=== PATIENT | female | born 1995 | race American Indian/Alaskan Native ===

== ENCOUNTER 2020-05-02 20:44 | Inpatient (IN) | payer MEDICAID ==
[2020-05-02] MEDS ORDERED: ePHEDrine SULFATE 50 MG/1 ML INJ IV PRN ×2 (21:22→23:46)
[2020-05-02] MEDS ORDERED: METHYLERGONOVINE MALEATE 0.2 MG/ML VIAL IM PRN (21:22)
[2020-05-02] MEDS ORDERED: OXYTOCIN 10 UNIT/1 ML INJ IM PRN (21:22)
[2020-05-02] MEDS ORDERED: BUTORPHANOL 2 MG/1 ML INJ IV PRN (21:22)
[2020-05-02] MEDS ORDERED: TERBUTALINE 1 MG/1 ML INJ SUB-Q PRN (21:22)
[2020-05-02] MEDS ORDERED: LIDOCAINE (2%) 20 MG/1 ML VIAL 20 ML MDV INFILTRATI ONE (21:22)
[2020-05-02] MEDS ORDERED: LOPERAMIDE 2 MG CAP PO PRN (21:22)
[2020-05-02] MEDS ORDERED: MINERAL OIL 30 ML ORAL LIQD PO PRN (21:22)
[2020-05-02] MEDS ORDERED: CARBOPROST TROMETHAMINE 250 MCG/1 ML INJ IM PRN (21:22)
[2020-05-02] MEDS ORDERED: fentaNYL 100 MCG/2 ML INJ IV PRN (21:22)
[2020-05-02] MEDS ORDERED: ONDANSETRON 4 MG/2 ML INJ IV PRN (21:22)
[2020-05-02] MEDS ORDERED: AMPICILLIN/NS 2 GM/100 ML 2 GM/100 ML BAG IV ONE (21:42)
[2020-05-02 21:54] LABS: Hematocrit 30.8 % (30.3-42.9); Hemoglobin 9.9 gm/dl (10.1-14.3); Mean Corpuscular HGB Conc 32 % (30-34); Mean Corpuscular Volume 79 fl (79-97); Platelet Count 265 K/mm3 (140-440); Red Blood Count 3.91 M/mm3 (3.65-5.03); Red Cell Distribution Width 16.3 % (13.2-15.2)
[2020-05-02] MEDS ORDERED: OXYTOCIN DRIP 30 UNITS/500 ML BAG IV SCH ×2 (22:00)
--- NOTE | 2020-05-02 22:03 | History and Physical Report ---
History of Present Illness Date of examination: 05/02/20 Chief complaint: Contractions q5-6 minutes and bloody show History of present illness: EDC Calculations LMP: 05/01/2020 Past History : 1 Term Births: 0 Premature Births: 0 Living Children: 0 Para: 0 Mult. Births: 0 Prev : 0 Aborta: 0 Elect. Ab: 0 Spont. 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 % Family History Risk Factors: Family History of MO in females < 65 years old: no Dietary Counseling: pn yes Past Medical History: Reviewed history and no changes required: Negative Past Medical History Past Surgical History: Reviewed history and no changes required: negative Past Medical History Anesthesia Complications: negative Anemia: negative Autoimmune Disorder: negative Bleeding Disorder: negative Blood Transfusions: negative Breast Disease: negative Diabetes: negative Heart Disease: negative Hypertension: negative Hepatitis/Liver Disease: negative Kidney Disease/UTI: negative Neurologic/Epilepsy/Migraines: negative Phlebitis/Varicosities: negative Psychiatric: negative Pulmonary Disease/Asthma: negative Thyroid Disease: negative Hospitalizations: negative Surgery (Non-burrer machine): negative Abnormal PAP: negative ISAAC Exposure: negative Infertility: negative Uterine Anomaly: negative Uterine Surgery (not C/S): negative Other Gynecologic Problems: negative Family Hx: Mother: HTN Infection History Hx of STD: none HIV Risk Eval: no Hepatitis B Risk Eval: low risk Personal hx. of genital herpes: no Partner hx. of genital herpes: no Rash, Viral, or Febrile illness since last LMP? no Varicella/Chicken Pox Status: Unknown TB Risk: no Genetic History Congenital Heart Defect: Mom: no Dad: unknown Cody Disease: Mom: no Dad: unknown Thalassemia Mom: no Dad: unknown Neural Tube Defect Mom: no Dad: unknown Down's Syndrome Mom: no Dad: unknown Dino-Sachs Mom: no Dad: unknown Sickle Cell Disease/Trait Mom: yes Dad: unknown Comments: Does not know family members name. Hemophilia Mom: no Dad: unknown Muscular Dystrophy Mom: no Dad: unknown Cystic Fibrosis Mom: no Dad: unknown [place] Chorea Mom: no Dad: unknown Mental Retardation Mom: no Dad: unknown Fragile X Mom: no Dad: unknown Other Genetic/Chromosomal Disorder Mom: no Dad: unknown Child w/other defect Mom: no Dad: unknown Enviromental Exposures Xray Exposure: no Medication, drug, or alcohol use since LMP: no Chemical/Other Exposure: no Exposure to Cat Liter: no Hx of Parvovirus (Fifth Disease): no Occupational Exposure to Children: none Current Allergies (reviewed today): * ROBITUSSIN (Critical) Past History Past Medical History: other (see HPI) Past Surgical History: other (see HPI) 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 (see HPI) Family/Genetic History: other (see HPI) - Obstetrical History Expected Date of Delivery: 05/01/20 Actual Gestation: 40 Week(s) 1 Day(s) : 1 Para: 0 Hx # Term Pregnancies: 0 Number of Pregnancies: 0 Spontaneous Abortions: 0 Induced : 0 Number of Living Children: 0 Medications and Allergies Allergies Allergy/AdvReac Type Severity Reaction Status Date / Time guaifenesin [From Robitussin] Allergy Unknown Verified 05/02/20 20:59 Active Meds: Active Medications Butorphanol Tartrate (Butorphanol 2 Mg/1 Ml Inj) 2 mg IV Q2H PRN PRN Reason: Pain , Severe (7-10) Carboprost Tromethamine (Carboprost Tromethamine 250 Mcg/1 Ml Inj) 250 mcg IM ONCE PRN PRN Reason: Uterine Bleeding Ephedrine Sulfate (Ephedrine Sulfate 50 Mg/1 Ml Inj) 10 mg IV Q2M PRN PRN Reason: Hypotension Fentanyl (Fentanyl 100 Mcg/2 Ml Inj) 100 mcg IV Q2H PRN PRN Reason: Pain,Severe (7-10) LABOR PAIN Oxytocin/Sodium Chloride (Pitocin/Ns 30 Unit/500ml) 30 units in 500 mls @ 4 mls/hr IV TITR KING; Protocol Lactated Ringer's (Lactated Ringers) 1,000 mls @ 125 mls/hr IV DIRECT KING Oxytocin/Sodium Chloride (Pitocin/Ns 30 Unit/500ml) 30 units in 500 mls @ 40 mls/hr IV TITR KING; Protocol Ampicillin Sodium (Ampicillin/Ns 2 Gm/100 Ml) 2 gm in 100 mls @ 100 mls/hr IV ONCE ONE; Protocol Stop: 05/02/20 22:41 Ampicillin Sodium (Ampicillin/Ns 1 Gm/50 Ml) 1 gm in 50 mls @ 100 mls/hr IV Q4H KING; Protocol Loperamide HCl (Loperamide 2 Mg Cap) 2 mg PO ONCE PRN PRN Reason: give with Hemabate Methylergonovine Maleate (Methylergonovine Maleate 0.2 Mg/Ml Vial) 0.2 mg IM ONCE PRN PRN Reason: Uterine Bleeding Mineral Oil (Mineral Oil 30 Ml Oral Liqd) 30 ml PO QHS PRN PRN Reason: Constipation Ondansetron HCl (Ondansetron 4 Mg/2 Ml Inj) 4 mg IV Q8H PRN PRN Reason: Nausea And Vomiting Oxytocin (Oxytocin 10 Unit/1 Ml Inj) 10 unit IM ONCE PRN PRN Reason: Uterine Bleeding Terbutaline Sulfate (Terbutaline 1 Mg/1 Ml Inj) 0.25 mg SUB-Q ONCE PRN PRN Reason: Hyperstimulation/Hypertonicity Review of Systems All systems: negative - Vital Signs Vital signs: Vital Signs Pulse Pulse Ox 109 H 99 05/02/20 21:09 05/02/20 21:09 Temp Pulse Resp BP Pulse Ox 99 F 98 H 127/81 99 05/02/20 21:18 05/02/20 21:54 05/02/20 21:29 05/02/20 21:54 - Physical Exam Breasts: Positive: normal Cardiovascular: Regular rate Lungs: Positive: Normal air movement Abdomen: Positive: normal appearance, soft Genitourinary (Female): Positive: normal external genitalia Vagina: Positive: normal moisture - Obstetrical FHR: category 1 Uterine Contraction Monitor Mode: External Cervical Dilatation: 3 Cervical Effacement Percentage: 80 station: -2 Uterine Contraction Pattern: Irregular Uterine Tone Measurement Phase: Contraction Uterine Contraction Intensity: Mild Results Result Diagrams: 05/02/20 21:40 Abnormal lab results 05/02/20 Range/Units 21:40 WBC 12.6 H (4.5-11.0) K/mm3 Hgb 9.9 L (10.1-14.3) gm/dl MCH 25 L (28-32) pg RDW 16.3 H (13.2-15.2) % All other labs normal. Assessment and Plan 24y/o @ 40+1 admitted in early labor, she rates pain 9/10. Admission orders in EMR; epidural PRN and pitocin as needed. Plan discussed with patient and her mother. GBS pos. Trich +, treated 04/29/2020, RAUDEL not yet done. - Patient Problems (1) Active labor at term Current Visit: Yes Status: Acute (2) GBS carrier Current Visit: Yes Status: Acute (3) 40 weeks gestation of Current Visit: Yes Status: Acute
[2020-05-02] MEDS: LACTATED RINGERS 1,000 ML IV SCH (22:53)
[2020-05-02] MEDS ORDERED: fentaNYL-BUPIV 2 MCG/ML-0.125% 200 MCG/100 ML BAG EPIDURAL SCH (23:45)
--- NOTE | 2020-05-02 23:45 | Anesthesia Consultation ---
Anesthesia Consult and Med Hx Date of service: 05/02/20 - Airway Anesthetic Teeth Evaluation: Good ROM Head & Neck: Adequate Mental/Hyoid Distance: Adequate Mallampati Class: Class II Intubation Access Assessment: Probably Good - Pulmonary Exam CTA: Yes - Cardiac Exam Cardiac Exam: RRR - Pre-Operative Health Status ASA Pre-Surgery Classification: ASA2 Proposed Anesthetic Plan: Epidural - Pulmonary Hx Smoking: No Hx Asthma: No Hx Respiratory Symptoms: No SOB: No COPD: No Home Oxygen Therapy: No Hx Pneumonia: No Hx Sleep Apnea: No - Cardiovascular System Hx Hypertension: No Hx Coronary Artery Disease: No Hx Heart Attack/AMI: No Hx Angina: No Hx Percutaneous Transluminal Coronary Angioplasty (PTCA): No Hx Cardia Arrhythmia: No Hx Pacemaker: No Hx Internal Defibrillator: No Hx Valvular Heart Disease: No Hx Heart Murmur: No Hx Peripheral Vascular Disease: No - Central Nervous System Hx Neuromuscular Disorder: No Hx Seizures: No CVA: No Hx Back Pain: No Hx Psychiatric Problems: No - Gastrointestinal Hx Ulcer: No Hx Gastroesophageal Reflux Disease: No - Endocrine Hx Renal Disease: No Hx End Stage Renal Disease: No Hx Cirrhosis: No Hx Liver Disease: No Hx Insulin Dependent Diabetes: No Hx Non-Insulin Dependent Diabetes: No Hx Thyroid Disease: No Hx Hypothyroidism: No Hx Hyperthyroidism: No - Hematic Hx Anemia: Yes (now) Hx Sickle Cell Disease: Yes (trait) - Other Systems Hx Alcohol Use: No Hx Substance Use: No Hx Cancer: No Hx Obesity: Yes
[2020-05-02] MEDS ORDERED: NALOXONE 2 MG/2 ML INJ IV PRN (23:46)
--- NOTE | 2020-05-02 23:46 | Progress Note ---
Labor Epidural - Labor Epidural Start Time: 00:15 Stop Time: 00:17 Performed by:: JUNE KENNEDY Procedure: Patient is requesting a laboring epidural for laboring pain. Patient IDed, H&P reviewed, all questions and concerns were answered, and consent was signed. Timeout was performed at bedside. Patient in sitting position. Sterile prep and drape was performed. [3] ml of 1% lidocaine skin wheal at L[3]- L [4]. 18- gauge Tuohy epidural needle was advanced to loss of resistance with air technique 6cm. Negative CSF negative blood. Epidural catheter advanced to [10] centimeters. [NEGATIVE] Aspiration [NEGATIVE] test dose. Sterile dressing applied. Patient tolerated procedure.
[2020-05-03] MEDS: LACTATED RINGERS 1,000 ML IV SCH ×2 (00:29→01:48)
[2020-05-03] MEDS ORDERED: AMPICILLIN/NS 1 GM/50 ML 1 GM/50 ML BAG IV SCH (01:23)
--- NOTE | 2020-05-03 07:46 | Progress Note ---
Assessment and Plan A: 24 y.o. @ term, active labor. Cervical exam 1. AROM light mec. P: Start Pitocin per protocol. SAGAR team at delivery d/t light mec. Anticipate . Subjective - Subjective Date of service: 05/03/20 (Pt feeling pressure) Principal diagnosis: IUP@ term, active labor Patient reports: new complaints (Pt states that she is feeling pressure) Objective - Vital Signs Vital Signs: Vital Signs - 12hr 05/02/20 05/02/20 05/02/20 21:09 21:10 21:14 Temperature Pulse Rate 109 H 100 H 113 H Respiratory Rate Blood Pressure 137/77 Blood Pressure [Left] O2 Sat by Pulse 99 99 Oximetry 05/02/20 05/02/20 05/02/20 21:18 21:19 21:23 Temperature 99 F Pulse Rate 120 H 90 Respiratory Rate Blood Pressure 144/79 Blood Pressure [Left] O2 Sat by Pulse 99 Oximetry 05/02/20 05/02/20 05/02/20 21:24 21:29 21:34 Temperature Pulse Rate 105 H 110 H 98 H Respiratory Rate Blood Pressure 127/81 Blood Pressure [Left] O2 Sat by Pulse 100 100 100 Oximetry 05/02/20 05/02/20 05/02/20 21:39 21:44 21:49 Temperature Pulse Rate 96 H 100 H 114 H Respiratory Rate Blood Pressure Blood Pressure [Left] O2 Sat by Pulse 99 99 100 Oximetry 05/02/20 05/02/20 05/02/20 21:54 21:59 22:04 Temperature Pulse Rate 98 H 106 H 98 H Respiratory Rate Blood Pressure Blood Pressure [Left] O2 Sat by Pulse 99 100 100 Oximetry 05/02/20 05/02/20 05/02/20 22:09 22:14 22:19 Temperature Pulse Rate 110 H 109 H 99 H Respiratory Rate Blood Pressure Blood Pressure [Left] O2 Sat by Pulse 100 99 100 Oximetry 05/02/20 05/02/20 05/02/20 22:48 22:53 22:54 Temperature 99.2 F Pulse Rate 91 H 101 H 94 H Respiratory 18 Rate Blood Pressure Blood Pressure 120/66 [Left] O2 Sat by Pulse 99 100 100 Oximetry 05/02/20 05/02/20 05/02/20 22:55 22:58 23:03 Temperature Pulse Rate 88 95 H 93 H Respiratory Rate Blood Pressure 120/66 Blood Pressure [Left] O2 Sat by Pulse 100 100 Oximetry 05/02/20 05/02/20 05/02/20 23:08 23:13 23:18 Temperature Pulse Rate 107 H 90 95 H Respiratory Rate Blood Pressure Blood Pressure [Left] O2 Sat by Pulse 99 100 100 Oximetry 05/02/20 05/02/20 05/03/20 23:23 23:56 00:01 Temperature Pulse Rate 84 93 H 111 H Respiratory Rate Blood Pressure Blood Pressure [Left] O2 Sat by Pulse 100 100 100 Oximetry 05/03/20 05/03/20 05/03/20 00:06 00:10 00:11 Temperature Pulse Rate 124 H 126 H 131 H Respiratory Rate Blood Pressure 122/73 Blood Pressure [Left] O2 Sat by Pulse 100 100 Oximetry 05/03/20 05/03/20 05/03/20 00:12 00:14 00:16 Temperature Pulse Rate 130 H 123 H 112 H Respiratory Rate Blood Pressure 125/73 130/77 128/78 Blood Pressure [Left] O2 Sat by Pulse 100 Oximetry 05/03/20 05/03/20 05/03/20 00:18 00:20 00:21 Temperature Pulse Rate 111 H 107 H 104 H Respiratory Rate Blood Pressure 130/80 127/71 Blood Pressure [Left] O2 Sat by Pulse 99 Oximetry 05/03/20 05/03/20 05/03/20 00:22 00:24 00:26 Temperature Pulse Rate 110 H 106 H 122 H Respiratory Rate Blood Pressure 118/61 121/77 120/64 Blood Pressure [Left] O2 Sat by Pulse 100 Oximetry 05/03/20 05/03/20 05/03/20 00:28 00:31 00:36 Temperature Pulse Rate 100 H 121 H 105 H Respiratory Rate Blood Pressure 120/58 Blood Pressure [Left] O2 Sat by Pulse 100 100 Oximetry 05/03/20 05/03/20 05/03/20 00:41 00:43 00:46 Temperature Pulse Rate 97 H 112 H 94 H Respiratory Rate Blood Pressure 115/58 Blood Pressure [Left] O2 Sat by Pulse 99 99 Oximetry 05/03/20 05/03/20 05/03/20 00:51 00:56 01:00 Temperature Pulse Rate 116 H 109 H 112 H Respiratory Rate Blood Pressure 116/59 Blood Pressure [Left] O2 Sat by Pulse 100 100 Oximetry 05/03/20 05/03/20 05/03/20 01:01 01:06 01:11 Temperature Pulse Rate 124 H 70 121 H Respiratory Rate Blood Pressure Blood Pressure [Left] O2 Sat by Pulse 98 100 100 Oximetry 05/03/20 05/03/20 05/03/20 01:15 01:16 01:21 Temperature Pulse Rate 113 H 109 H 115 H Respiratory Rate Blood Pressure 105/59 Blood Pressure [Left] O2 Sat by Pulse 100 100 Oximetry 05/03/20 05/03/20 05/03/20 01:26 01:30 01:31 Temperature Pulse Rate 107 H 109 H 111 H Respiratory Rate Blood Pressure 104/58 Blood Pressure [Left] O2 Sat by Pulse 100 99 Oximetry 05/03/20 05/03/20 05/03/20 01:36 01:41 01:45 Temperature Pulse Rate 105 H 98 H 97 H Respiratory Rate Blood Pressure 118/68 Blood Pressure [Left] O2 Sat by Pulse 99 100 Oximetry 05/03/20 05/03/20 05/03/20 01:46 01:51 01:56 Temperature Pulse Rate 107 H 119 H 117 H Respiratory Rate Blood Pressure Blood Pressure [Left] O2 Sat by Pulse 100 100 100 Oximetry 05/03/20 05/03/20 05/03/20 02:00 02:01 02:06 Temperature Pulse Rate 115 H 125 H 112 H Respiratory Rate Blood Pressure 102/56 Blood Pressure [Left] O2 Sat by Pulse 100 100 Oximetry 05/03/20 05/03/20 05/03/20 02:11 02:16 02:17 Temperature Pulse Rate 114 H 112 H 114 H Respiratory Rate Blood Pressure 104/59 Blood Pressure [Left] O2 Sat by Pulse 100 100 Oximetry 05/03/20 05/03/20 05/03/20 02:21 02:26 02:31 Temperature Pulse Rate 118 H 108 H 104 H Respiratory Rate Blood Pressure Blood Pressure [Left] O2 Sat by Pulse 100 100 100 Oximetry 05/03/20 05/03/20 05/03/20 02:32 02:36 02:41 Temperature Pulse Rate 107 H 120 H 111 H Respiratory Rate Blood Pressure 106/56 Blood Pressure [Left] O2 Sat by Pulse 100 100 Oximetry 05/03/20 05/03/20 05/03/20 02:45 02:46 02:51 Temperature Pulse Rate 100 H 111 H 106 H Respiratory Rate Blood Pressure 96/52 Blood Pressure [Left] O2 Sat by Pulse 100 100 Oximetry 05/03/20 05/03/20 05/03/20 02:56 03:00 03:01 Temperature Pulse Rate 108 H 102 H 104 H Respiratory Rate Blood Pressure 103/56 Blood Pressure [Left] O2 Sat by Pulse 100 100 Oximetry 05/03/20 05/03/20 05/03/20 03:06 03:11 03:15 Temperature Pulse Rate 107 H 120 H 108 H Respiratory Rate Blood Pressure 112/69 Blood Pressure [Left] O2 Sat by Pulse 100 100 Oximetry 05/03/20 05/03/20 05/03/20 03:16 03:21 03:26 Temperature Pulse Rate 120 H 102 H 101 H Respiratory Rate Blood Pressure Blood Pressure [Left] O2 Sat by Pulse 100 99 100 Oximetry 05/03/20 05/03/20 05/03/20 03:30 03:31 03:36 Temperature Pulse Rate 109 H 132 H 126 H Respiratory Rate Blood Pressure 96/53 Blood Pressure [Left] O2 Sat by Pulse 100 100 Oximetry 05/03/20 05/03/20 05/03/20 03:41 03:45 03:46 Temperature Pulse Rate 114 H 111 H 116 H Respiratory Rate Blood Pressure 111/65 Blood Pressure [Left] O2 Sat by Pulse 100 100 Oximetry 05/03/20 05/03/20 05/03/20 03:51 03:56 04:00 Temperature Pulse Rate 114 H 116 H 113 H Respiratory Rate Blood Pressure 115/57 Blood Pressure [Left] O2 Sat by Pulse 100 100 Oximetry 05/03/20 05/03/20 05/03/20 04:01 04:06 04:11 Temperature Pulse Rate 124 H 127 H 130 H Respiratory Rate Blood Pressure Blood Pressure [Left] O2 Sat by Pulse 100 100 100 Oximetry 05/03/20 05/03/20 05/03/20 04:15 04:16 04:21 Temperature Pulse Rate 130 H 106 H 114 H Respiratory Rate Blood Pressure 109/59 Blood Pressure [Left] O2 Sat by Pulse 100 100 Oximetry 05/03/20 05/03/20 05/03/20 04:26 04:30 04:31 Temperature Pulse Rate 111 H 117 H 111 H Respiratory Rate Blood Pressure 107/59 Blood Pressure [Left] O2 Sat by Pulse 99 99 Oximetry 05/03/20 05/03/20 05/03/20 04:36 04:41 04:46 Temperature Pulse Rate 108 H 122 H 111 H Respiratory Rate Blood Pressure 109/57 Blood Pressure [Left] O2 Sat by Pulse 99 100 100 Oximetry 05/03/20 05/03/20 05/03/20 04:51 04:56 05:01 Temperature Pulse Rate 137 H 128 H 122 H Respiratory Rate Blood Pressure 124/74 Blood Pressure [Left] O2 Sat by Pulse 99 100 100 Oximetry 05/03/20 05/03/20 05/03/20 05:06 05:11 05:15 Temperature Pulse Rate 120 H 115 H 121 H Respiratory Rate Blood Pressure 112/64 Blood Pressure [Left] O2 Sat by Pulse 100 100 Oximetry 05/03/20 05/03/20 05/03/20 05:16 05:21 05:26 Temperature Pulse Rate 113 H 112 H 108 H Respiratory Rate Blood Pressure Blood Pressure [Left] O2 Sat by Pulse 99 98 98 Oximetry 05/03/20 05/03/20 05/03/20 05:30 05:31 05:36 Temperature Pulse Rate 111 H 115 H 116 H Respiratory Rate Blood Pressure 105/58 Blood Pressure [Left] O2 Sat by Pulse 99 100 Oximetry 05/03/20 05/03/20 05/03/20 05:41 05:45 05:46 Temperature Pulse Rate 100 H 117 H 130 H Respiratory Rate Blood Pressure 112/63 Blood Pressure [Left] O2 Sat by Pulse 99 99 Oximetry 05/03/20 05/03/20 05/03/20 05:51 05:56 06:00 Temperature 98.9 F Pulse Rate 118 H 105 H 110 H Respiratory 20 Rate Blood Pressure 115/69 Blood Pressure 115/69 [Left] O2 Sat by Pulse 100 100 98 Oximetry 05/03/20 05/03/20 05/03/20 06:01 06:06 06:11 Temperature Pulse Rate 106 H 98 H 96 H Respiratory Rate Blood Pressure Blood Pressure [Left] O2 Sat by Pulse 99 99 98 Oximetry 05/03/20 05/03/20 05/03/20 06:15 06:16 06:21 Temperature Pulse Rate 103 H 98 H 103 H Respiratory Rate Blood Pressure 118/71 Blood Pressure [Left] O2 Sat by Pulse 99 99 Oximetry 05/03/20 05/03/20 05/03/20 06:26 06:31 06:36 Temperature Pulse Rate 94 H 104 H 118 H Respiratory Rate Blood Pressure 130/78 Blood Pressure [Left] O2 Sat by Pulse 99 100 99 Oximetry 05/03/20 05/03/20 05/03/20 06:41 06:45 06:46 Temperature Pulse Rate 94 H 111 H 114 H Respiratory Rate Blood Pressure 120/65 Blood Pressure [Left] O2 Sat by Pulse 100 100 Oximetry 05/03/20 05/03/20 05/03/20 06:51 06:56 07:01 Temperature Pulse Rate 107 H 102 H 112 H Respiratory Rate Blood Pressure 117/72 Blood Pressure [Left] O2 Sat by Pulse 100 100 100 Oximetry 05/03/20 05/03/20 05/03/20 07:06 07:11 07:15 Temperature Pulse Rate 102 H 111 H 103 H Respiratory Rate Blood Pressure 100/59 Blood Pressure [Left] O2 Sat by Pulse 100 100 Oximetry 05/03/20 05/03/20 05/03/20 07:16 07:21 07:26 Temperature Pulse Rate 101 H 106 H 104 H Respiratory Rate Blood Pressure Blood Pressure [Left] O2 Sat by Pulse 100 100 100 Oximetry 05/03/20 05/03/20 05/03/20 07:30 07:31 07:36 Temperature Pulse Rate 101 H 105 H 110 H Respiratory Rate Blood Pressure 107/62 Blood Pressure [Left] O2 Sat by Pulse 99 100 Oximetry - Exam Narrative Exam: BBOW noted on exam. AROM light mec noted. SAGAR nurses to be at delivery. Pitocin to be started by RN. Pt has epidural placed and is comfortable. Breasts: deferred Cardiovascular: Regular rate Lungs: Normal air movement Abdomen: Present: normal appearance, soft Vulva: both: normal Uterus: Present: normal FHR: category 1 Uterine Contraction Monitor Mode: External Cervical Dilatation: 7 Cervical Effacement Percentage: 90 station: -1 Uterine Contraction Pattern: Irregular Uterine Tone Measurement Phase: Resting Uterine Contraction Intensity: Moderate Extremities: normal Deep Tendon Reflex Grade: Normal +2 - Labs Labs: Abnormal Labs 05/02/20 21:40 WBC 12.6 H Hgb 9.9 L MCH 25 L RDW 16.3 H Laboratory Results - last 24 hr 05/02/20 05/02/20 05/02/20 21:40 21:40 21:40 WBC 12.6 H RBC 3.91 Hgb 9.9 L Hct 30.8 MCV 79 MCH 25 L MCHC 32 RDW 16.3 H Plt Count 265 Syphilis IgG Antibody Nonreactive Blood Type A POSITIVE Antibody Screen Negative
[2020-05-03] MEDS ORDERED: METOCLOPRAMIDE 10 MG/2 ML INJ ONE (08:50)
[2020-05-03] MEDS ORDERED: ceFAZolin/NS 1 GM/50 ML 1 GM/50 ML BAG IV ONE (08:50)
[2020-05-03] MEDS ORDERED: FAMOTIDINE 20 MG/2 ML INJ IV ONE (08:50)
[2020-05-03] MEDS ORDERED: LIDOCAINE (2%) 20 MG/1 ML VIAL 20 ML MDV INFILTRATI ONE (08:53)
[2020-05-03] MEDS ORDERED: BICITRA ORAL LIQD 30ML ONE (08:55)
--- NOTE | 2020-05-03 09:06 | Event Note ---
Date: 05/03/20 (Deceleration on monitor) Called to room by RN d/t deceleration noted on monitor. Pitocin has not yet been started. Upon entering room prolonged deceleration noted into the 70's. Cervical exam /. Pt turned to left lateral position. Dr. Obregon called and updated on patient progress in labor and deceler ations. Pt prepped for . Consent signed and in chart.
[2020-05-03] MEDS ORDERED: ceFAZolin/STERILE WATER 2 GM/20 ML SYRINGE IV ONE (09:20)
[2020-05-03] MEDS ORDERED: SODIUM CHLORIDE 0.9% IRR 1,500 ML BOTTLE IR ONE (09:30)
[2020-05-03] MEDS ORDERED: WATER FOR IRRIG STERILE 1,500 ML BOTTLE IR ONE (09:30)
[2020-05-03] MEDS ORDERED: PHENYLEPHRINE/NS 1,000 MCG/10 ML SYRINGE (OR USE) IV ONE (09:44)
[2020-05-03] MEDS ORDERED: KETOROLAC 30 MG/1 ML INJ ONE (09:44)
[2020-05-03] MEDS ORDERED: SODIUM BICARB 8.4% 50 MEQ/50 ML VIAL IV ONE (09:44)
[2020-05-03] MEDS ORDERED: ONDANSETRON 4 MG/2 ML INJ ONE (09:44)
[2020-05-03] MEDS ORDERED: BUPIVACAINE/PF (0.5%) 5 MG/1 ML 30 ML VIAL INFILTRATI ONE (09:57)
[2020-05-03] MEDS ORDERED: SODIUM CHLORIDE 0.9% 100 ML ONE (09:58)
--- NOTE | 2020-05-03 11:00 | Operative Report ---
Operative Report Operative Report: Date of procedure: Pre-operative diagnosis: Intrauterine of 40 weeks 1 days with recurrent prolonged bradycardia. Nonreassuring heart rate. Meconium stained amniotic fluid Post-operative diagnosis: Same Procedure name(s): Emergent primary low transverse section Surgeon: Joel Obregon MD [employer] Painter And Grader: Dulce Murillo, certified nurse freelance displayer Anesthesia: Spinal EBL: 600 mL Complications: None Findings: Patient with normal uterus tubes and ovaries bilaterally. Male infant weight 5 pounds 10 ounces. Apgars 8 at 1 minute and 9 at 5 minutes. Specimen(s): None Indication: Patient is labor progressed to 8cm dilatation with meconium stained fluid started having recurrent bradycardia prolonged with multiple contractions. Patient cervical exam and descent status was remote from delivery. Decision made to move toward operative delivery. Procedure: The patient was brought to the operating room in a emergent fashion. Except default patient had spinal anesthesia placed due to inadequate epidural pain relief. She was then placed in left lateral tilt. Prepped and draped in the usual sterile manner. After testing for anesthesia level. Timeout was performed. A Pfannenstiel incision was made. This incision was taken down to the fascia. The fascia was then nicked in the midline. This incision was extended laterally with Miller scissors. The fascia was then sharply and bluntly from the underlying rectus muscles. The rectus muscles were bluntly and sharply . The peritoneum was then entered with the panelboard operator's fingers. This incision was spread vertically with care not to damage the bladder below. The Kike self-retaining tractor was then placed without any difficulty .Bladder blade was placed. The bladder flap was then formed sharply and bluntly with Metzenbaum scissors. Bladder blade replaced. A transverse incision was made in lower uterine segment. This incision was extended laterally with the operators fingers. The amniotic sac was then entered bluntly with the panelboard operator's fingers. The infant was delivered from the vertex position. Bulb suction on the mother's abdomen. Cord was double clamped and cut. The was then passed to the nursery personnel who were in attendance. The above scores were given by the nursery personnel. The placenta was then bluntly removed. The uterus was then externalized and wiped clean the remaining products. The uterine incision was closed in layers. The first incision was closed in a locking manner using 0 Vicryl. This was followed by imbricating stitch also with 0 Vicryl. This closure was hemostatic. The bladder flap was copiously irrigated and found to be hemostatic. The pelvis was copiously irrigated and found to be hemostatic. The uterus was then placed back to the patient's abdomen. The retractors were removed. The rectus muscles were inspected and found to be hemostatic. The fascia was then closed in a running manner using 0 Vicryl. This incision was hemostatic irrigation Bovie. The skin was reapproximated with 4-0 Vicryl subcuticularly. Dermabond was placed over the skin incision. The patient tolerated procedure well. Her urine was clear. The was admitted to the well baby nursery. The patient was accompanied to recovery room in good condition. Instrument count correct 3.
--- NOTE | 2020-05-03 11:22 | Progress Note ---
Spinal Anesthesia Block - Spinal Anesthesia Block Start Time: 09:12 Stop Time: :17 Performed by:: JUNE KENNEDY Procedure: Patient IDed, H&P reviewed, all questions and concerns were answered, and consent was signed. Timeout was performed at bedside. Patient in sitting position. Sterile prep and drape was performed. [3] ml of 1% lidocaine skin wheal at L[3]- L [4]. Needle introducer advanced. 25 gauge spinal needle advanced. Clear, free flowing CSF. negative blood, negative paresthesia. Spinal dose given. All needles removed. Patient tolerated procedure.
--- NOTE | 2020-05-03 11:25 | Progress Note ---
Subjective Date of service: 05/03/20 Principal diagnosis: IUP@ term, active labor Bilateral TAP Block Interval history: Patient IDed, H&P reviewed, all questions and concerns were answered, and c onsent was signed. Timeout was performed at bedside. Patient in sitting position. Sterile prep and drape was performed. [3] ml of 1% lidocaine skin wheal at L[3]- L [4]. Needle introducer advanced. 25 gauge spinal needle advanced. Clear, free flowing CSF. negative blood, negative paresthesia. Spinal dose given. All needles removed. Patient tolerated procedure. Objective - Constitutional Vitals: Vital Signs - 12hr 05/02/20 05/03/20 05/03/20 23:56 00:01 00:06 Temperature Pulse Rate 93 H 111 H 124 H Respiratory Rate Blood Pressure Blood Pressure [Left] O2 Sat by Pulse 100 100 100 Oximetry 05/03/20 05/03/20 05/03/20 00:10 00:11 00:12 Temperature Pulse Rate 126 H 131 H 130 H Respiratory Rate Blood Pressure 122/73 125/73 Blood Pressure [Left] O2 Sat by Pulse 100 Oximetry 05/03/20 05/03/20 05/03/20 00:14 00:16 00:18 Temperature Pulse Rate 123 H 112 H 111 H Respiratory Rate Blood Pressure 130/77 128/78 130/80 Blood Pressure [Left] O2 Sat by Pulse 100 Oximetry 05/03/20 05/03/20 05/03/20 00:20 00:21 00:22 Temperature Pulse Rate 107 H 104 H 110 H Respiratory Rate Blood Pressure 127/71 118/61 Blood Pressure [Left] O2 Sat by Pulse 99 Oximetry 05/03/20 05/03/20 05/03/20 00:24 00:26 00:28 Temperature Pulse Rate 106 H 122 H 100 H Respiratory Rate Blood Pressure 121/77 120/64 120/58 Blood Pressure [Left] O2 Sat by Pulse 100 Oximetry 05/03/20 05/03/20 05/03/20 00:31 00:36 00:41 Temperature Pulse Rate 121 H 105 H 97 H Respiratory Rate Blood Pressure Blood Pressure [Left] O2 Sat by Pulse 100 100 99 Oximetry 05/03/20 05/03/20 05/03/20 00:43 00:46 00:51 Temperature Pulse Rate 112 H 94 H 116 H Respiratory Rate Blood Pressure 115/58 Blood Pressure [Left] O2 Sat by Pulse 99 100 Oximetry 05/03/20 05/03/20 05/03/20 00:56 01:00 01:01 Temperature Pulse Rate 109 H 112 H 124 H Respiratory Rate Blood Pressure 116/59 Blood Pressure [Left] O2 Sat by Pulse 100 98 Oximetry 05/03/20 05/03/20 05/03/20 01:06 01:11 01:15 Temperature Pulse Rate 70 121 H 113 H Respiratory Rate Blood Pressure 105/59 Blood Pressure [Left] O2 Sat by Pulse 100 100 Oximetry 05/03/20 05/03/20 05/03/20 01:16 01:21 01:26 Temperature Pulse Rate 109 H 115 H 107 H Respiratory Rate Blood Pressure Blood Pressure [Left] O2 Sat by Pulse 100 100 100 Oximetry 05/03/20 05/03/20 05/03/20 01:30 01:31 01:36 Temperature Pulse Rate 109 H 111 H 105 H Respiratory Rate Blood Pressure 104/58 Blood Pressure [Left] O2 Sat by Pulse 99 99 Oximetry 05/03/20 05/03/20 05/03/20 01:41 01:45 01:46 Temperature Pulse Rate 98 H 97 H 107 H Respiratory Rate Blood Pressure 118/68 Blood Pressure [Left] O2 Sat by Pulse 100 100 Oximetry 05/03/20 05/03/20 05/03/20 01:51 01:56 02:00 Temperature Pulse Rate 119 H 117 H 115 H Respiratory Rate Blood Pressure 102/56 Blood Pressure [Left] O2 Sat by Pulse 100 100 Oximetry 05/03/20 05/03/20 05/03/20 02:01 02:06 02:11 Temperature Pulse Rate 125 H 112 H 114 H Respiratory Rate Blood Pressure Blood Pressure [Left] O2 Sat by Pulse 100 100 100 Oximetry 05/03/20 05/03/20 05/03/20 02:16 02:17 02:21 Temperature Pulse Rate 112 H 114 H 118 H Respiratory Rate Blood Pressure 104/59 Blood Pressure [Left] O2 Sat by Pulse 100 100 Oximetry 05/03/20 05/03/20 05/03/20 02:26 02:31 02:32 Temperature Pulse Rate 108 H 104 H 107 H Respiratory Rate Blood Pressure 106/56 Blood Pressure [Left] O2 Sat by Pulse 100 100 Oximetry 05/03/20 05/03/20 05/03/20 02:36 02:41 02:45 Temperature Pulse Rate 120 H 111 H 100 H Respiratory Rate Blood Pressure 96/52 Blood Pressure [Left] O2 Sat by Pulse 100 100 Oximetry 05/03/20 05/03/20 05/03/20 02:46 02:51 02:56 Temperature Pulse Rate 111 H 106 H 108 H Respiratory Rate Blood Pressure Blood Pressure [Left] O2 Sat by Pulse 100 100 100 Oximetry 05/03/20 05/03/20 05/03/20 03:00 03:01 03:06 Temperature Pulse Rate 102 H 104 H 107 H Respiratory Rate Blood Pressure 103/56 Blood Pressure [Left] O2 Sat by Pulse 100 100 Oximetry 05/03/20 05/03/20 05/03/20 03:11 03:15 03:16 Temperature Pulse Rate 120 H 108 H 120 H Respiratory Rate Blood Pressure 112/69 Blood Pressure [Left] O2 Sat by Pulse 100 100 Oximetry 05/03/20 05/03/20 05/03/20 03:21 03:26 03:30 Temperature Pulse Rate 102 H 101 H 109 H Respiratory Rate Blood Pressure 96/53 Blood Pressure [Left] O2 Sat by Pulse 99 100 Oximetry 05/03/20 05/03/20 05/03/20 03:31 03:36 03:41 Temperature Pulse Rate 132 H 126 H 114 H Respiratory Rate Blood Pressure Blood Pressure [Left] O2 Sat by Pulse 100 100 100 Oximetry 05/03/20 05/03/20 05/03/20 03:45 03:46 03:51 Temperature Pulse Rate 111 H 116 H 114 H Respiratory Rate Blood Pressure 111/65 Blood Pressure [Left] O2 Sat by Pulse 100 100 Oximetry 05/03/20 05/03/20 05/03/20 03:56 04:00 04:01 Temperature Pulse Rate 116 H 113 H 124 H Respiratory Rate Blood Pressure 115/57 Blood Pressure [Left] O2 Sat by Pulse 100 100 Oximetry 05/03/20 05/03/20 05/03/20 04:06 04:11 04:15 Temperature Pulse Rate 127 H 130 H 130 H Respiratory Rate Blood Pressure 109/59 Blood Pressure [Left] O2 Sat by Pulse 100 100 Oximetry 05/03/20 05/03/20 05/03/20 04:16 04:21 04:26 Temperature Pulse Rate 106 H 114 H 111 H Respiratory Rate Blood Pressure Blood Pressure [Left] O2 Sat by Pulse 100 100 99 Oximetry 05/03/20 05/03/20 05/03/20 04:30 04:31 04:36 Temperature Pulse Rate 117 H 111 H 108 H Respiratory Rate Blood Pressure 107/59 Blood Pressure [Left] O2 Sat by Pulse 99 99 Oximetry 05/03/20 05/03/20 05/03/20 04:41 04:46 04:51 Temperature Pulse Rate 122 H 111 H 137 H Respiratory Rate Blood Pressure 109/57 Blood Pressure [Left] O2 Sat by Pulse 100 100 99 Oximetry 05/03/20 05/03/20 05/03/20 04:56 05:01 05:06 Temperature Pulse Rate 128 H 122 H 120 H Respiratory Rate Blood Pressure 124/74 Blood Pressure [Left] O2 Sat by Pulse 100 100 100 Oximetry 05/03/20 05/03/20 05/03/20 05:11 05:15 05:16 Temperature Pulse Rate 115 H 121 H 113 H Respiratory Rate Blood Pressure 112/64 Blood Pressure [Left] O2 Sat by Pulse 100 99 Oximetry 05/03/20 05/03/20 05/03/20 05:21 05:26 05:30 Temperature Pulse Rate 112 H 108 H 111 H Respiratory Rate Blood Pressure 105/58 Blood Pressure [Left] O2 Sat by Pulse 98 98 Oximetry 05/03/20 05/03/20 05/03/20 05:31 05:36 05:41 Temperature Pulse Rate 115 H 116 H 100 H Respiratory Rate Blood Pressure Blood Pressure [Left] O2 Sat by Pulse 99 100 99 Oximetry 05/03/20 05/03/20 05/03/20 05:45 05:46 05:51 Temperature Pulse Rate 117 H 130 H 118 H Respiratory Rate Blood Pressure 112/63 Blood Pressure [Left] O2 Sat by Pulse 99 100 Oximetry 05/03/20 05/03/20 05/03/20 05:56 06:00 06:01 Temperature 98.9 F Pulse Rate 105 H 110 H 106 H Respiratory 20 Rate Blood Pressure 115/69 Blood Pressure 115/69 [Left] O2 Sat by Pulse 100 98 99 Oximetry 05/03/20 05/03/20 05/03/20 06:06 06:11 06:15 Temperature Pulse Rate 98 H 96 H 103 H Respiratory Rate Blood Pressure 118/71 Blood Pressure [Left] O2 Sat by Pulse 99 98 Oximetry 05/03/20 05/03/20 05/03/20 06:16 06:21 06:26 Temperature Pulse Rate 98 H 103 H 94 H Respiratory Rate Blood Pressure Blood Pressure [Left] O2 Sat by Pulse 99 99 99 Oximetry 05/03/20 05/03/20 05/03/20 06:31 06:36 06:41 Temperature Pulse Rate 104 H 118 H 94 H Respiratory Rate Blood Pressure 130/78 Blood Pressure [Left] O2 Sat by Pulse 100 99 100 Oximetry 05/03/20 05/03/20 05/03/20 06:45 06:46 06:51 Temperature Pulse Rate 111 H 114 H 107 H Respiratory Rate Blood Pressure 120/65 Blood Pressure [Left] O2 Sat by Pulse 100 100 Oximetry 05/03/20 05/03/20 05/03/20 06:56 07:01 07:06 Temperature Pulse Rate 102 H 112 H 102 H Respiratory Rate Blood Pressure 117/72 Blood Pressure [Left] O2 Sat by Pulse 100 100 100 Oximetry 05/03/20 05/03/20 05/03/20 07:11 07:15 07:16 Temperature Pulse Rate 111 H 103 H 101 H Respiratory Rate Blood Pressure 100/59 Blood Pressure [Left] O2 Sat by Pulse 100 100 Oximetry 05/03/20 05/03/20 05/03/20 07:21 07:26 07:30 Temperature Pulse Rate 106 H 104 H 101 H Respiratory Rate Blood Pressure 107/62 Blood Pressure [Left] O2 Sat by Pulse 100 100 Oximetry 05/03/20 05/03/20 05/03/20 07:31 07:36 07:41 Temperature Pulse Rate 105 H 110 H 115 H Respiratory Rate Blood Pressure Blood Pressure [Left] O2 Sat by Pulse 99 100 100 Oximetry 05/03/20 05/03/20 05/03/20 07:46 07:51 07:56 Temperature 98.5 F Pulse Rate 61 114 H 125 H Respiratory 16 Rate Blood Pressure 134/66 Blood Pressure 157/76 [Left] O2 Sat by Pulse 100 100 100 Oximetry 05/03/20 05/03/20 05/03/20 08:00 08:01 08:06 Temperature Pulse Rate 115 H 116 H 110 H Respiratory Rate Blood Pressure 122/64 Blood Pressure [Left] O2 Sat by Pulse 100 100 Oximetry 05/03/20 05/03/20 05/03/20 08:11 08:15 08:16 Temperature Pulse Rate 109 H 110 H 111 H Respiratory Rate Blood Pressure 125/71 Blood Pressure [Left] O2 Sat by Pulse 100 100 Oximetry 05/03/20 05/03/20 05/03/20 08:21 08:26 08:31 Temperature Pulse Rate 132 H 113 H 109 H Respiratory Rate Blood Pressure Blood Pressure [Left] O2 Sat by Pulse 100 99 100 Oximetry 05/03/20 05/03/20 05/03/20 08:32 08:36 08:41 Temperature Pulse Rate 112 H 114 H 127 H Respiratory Rate Blood Pressure 126/78 Blood Pressure [Left] O2 Sat by Pulse 100 100 Oximetry 05/03/20 05/03/20 05/03/20 08:46 08:51 08:56 Temperature Pulse Rate 133 H 117 H 115 H Respiratory Rate Blood Pressure 220/107 Blood Pressure [Left] O2 Sat by Pulse 100 100 100 Oximetry 05/03/20 09:01 Temperature Pulse Rate 131 H Respiratory Rate Blood Pressure Blood Pressure [Left] O2 Sat by Pulse 100 Oximetry - Labs CBC & Chem 7: 05/02/20 21:40 Labs: Abnormal lab results 05/02/20 Range/Units 21:40 WBC 12.6 H (4.5-11.0) K/mm3 Hgb 9.9 L (10.1-14.3) gm/dl MCH 25 L (28-32) pg RDW 16.3 H (13.2-15.2) %
--- NOTE | 2020-05-03 11:25 | Anesthesia Day of Surgery ---
Anesthesia Day of Surgery - Day of Surgery Patient Examined: Yes Patient H&P Reviewed: Yes Patient is NPO: Yes Beta Blockers: No Cardiac Clearance: No Pulmonary Clearance: No Anastacio's Test: N/A
--- NOTE | 2020-05-03 11:26 | Post Anesthesia Evaluation ---
- Post Anesthesia Evaluation Patient Participated: Yes Airway Patent: Yes Stable Respiratory Function: Yes Nausea/Vomiting: No Temp > 96.8F: Yes Pain Manageable: Yes Adequeate Hydration: Yes Anesthesia Complications: No Block Receding Appropriately: Yes Patient on Ventilator: No
[2020-05-03] MEDS ORDERED: D5W/LACTATED RINGERS 1,000 ML IV SCH (14:00)
[2020-05-03] MEDS ORDERED: LANOLIN/ZINC/DIMETHICONE (LANSINOH) 7 GM TP PRN (14:00)
[2020-05-03] MEDS ORDERED: WITCH HAZEL/ GLYCERIN PAD TP PRN (14:00)
[2020-05-03] MEDS ORDERED: NALOXONE 0.4 MG/1 ML INJ IV PRN (14:00)
[2020-05-03] MEDS ORDERED: SIMETHICONE 80 MG CHEW TAB PO PRN (14:00)
[2020-05-03] MEDS ORDERED: OXYTOCIN DRIP 30 UNITS/500 ML BAG IV SCH (14:00)
[2020-05-03] MEDS ORDERED: KETOROLAC 30 MG/1 ML INJ IV PRN (14:00)
[2020-05-03] MEDS: ceFAZolin/NS 1 GM/50 ML 1 GM/50 ML BAG IV SCH (17:20)
[2020-05-03] MEDS ORDERED: MAGNESIUM HYDROXIDE (MOM) ORAL LIQD UDC PO PRN (22:00)
[2020-05-04] MEDS: ceFAZolin/NS 1 GM/50 ML 1 GM/50 ML BAG IV SCH (01:24)
[2020-05-04 02:48] LABS: Hematocrit 25.4 % (30.3-42.9); Hemoglobin 8.3 gm/dl (10.1-14.3)
[2020-05-04] MEDS: HYDROcodone/ACETAMINOPHEN 5-325 MG TAB PO PRN ×3 (05:55→18:15)
--- NOTE | 2020-05-04 09:50 | Progress Note ---
<ASHLEY SANCHEZ Maxi - Last Filed: 05/04/20 09:46> Assessment and Plan pt resting, VSSAF, H&H 8.3/25.4, anemia d/t acute blood loss. FE and colace ordered. lochia scant, fundus firm, incision D&I - Patient Problems (1) delivery delivered Current Visit: Yes Status: Acute Plan to address problem: advance diet and activity as tolerated anticipate c/s tomorrow if stable (may stay until Wednesday if baby is still in [facility]) (2) Anemia due to acute blood loss Current Visit: Yes Status: Acute Plan to address problem: FE BID Subjective - Subjective Date of service: 05/04/20 Principal diagnosis: postop day #1 s/p primary c/s Interval history: EDC Calculations LMP: 05/01/2020 Past History : 1 Term Births: 0 Premature Births: 0 Living Children: 0 Para: 0 Mult. Births: 0 Prev : 0 Aborta: 0 Elect. Ab: 0 Spont. Ab: 0 Ectopics: 0 Risk Factors: Smoked Tobacco Use: Never smoker Smokeless Tobacco Use: Never Passive smoke exposure: no Drug use: no HIV high-risk behavior: no Alcohol use: no Seatbelt use: preg-counsellors % Family History Risk Factors: Family History of GA in females < 65 years old: no Dietary Counseling: pn yes Past Medical History: Reviewed history and no changes required: Negative Past Medical History Past Surgical History: Reviewed history and no changes required: negative Past Medical History Anesthesia Complications: negative Anemia: negative Autoimmune Disorder: negative Bleeding Disorder: negative Blood Transfusions: negative Breast Disease: negative Diabetes: negative Heart Disease: negative Hypertension: negative Hepatitis/Liver Disease: negative Kidney Disease/UTI: negative Neurologic/Epilepsy/Migraines: negative Phlebitis/Varicosities: negative Psychiatric: negative Pulmonary Disease/Asthma: negative Thyroid Disease: negative Hospitalizations: negative Surgery (Non-wind commissioning technician): negative Abnormal PAP: negative ISAAC Exposure: negative Infertility: negative Uterine Anomaly: negative Uterine Surgery (not C/S): negative Other Gynecologic Problems: negative Family Hx: Mother: HTN Infection History Hx of STD: none HIV Risk Eval: no Hepatitis B Risk Eval: low risk Personal hx. of genital herpes: no Partner hx. of genital herpes: no Rash, Viral, or Febrile illness since last LMP? no Varicella/Chicken Pox Status: Unknown TB Risk: no Genetic History Congenital Heart Defect: Mom: no Dad: unknown Cody Disease: Mom: no Dad: unknown Thalassemia Mom: no Dad: unknown Neural Tube Defect Mom: no Dad: unknown Down's Syndrome Mom: no Dad: unknown Dino-Sachs Mom: no Dad: unknown Sickle Cell Disease/Trait Mom: yes Dad: unknown Comments: Does not know family members name. Hemophilia Mom: no Dad: unknown Muscular Dystrophy Mom: no Dad: unknown Cystic Fibrosis Mom: no Dad: unknown [place] Chorea Mom: no Dad: unknown Mental Retardation Mom: no Dad: unknown Fragile X Mom: no Dad: unknown Other Genetic/Chromosomal Disorder Mom: no Dad: unknown Child w/other defect Mom: no Dad: unknown Enviromental Exposures Xray Exposure: no Medication, drug, or alcohol use since LMP: no Chemical/Other Exposure: no Exposure to Cat Liter: no Hx of Parvovirus (Fifth Disease): no Occupational Exposure to Children: none Current Allergies (reviewed today): * ROBITUSSIN (Critical) Patient reports: appetite normal, voiding normally, pain well controlled, ambulating normally, no dizzy ambulation, no nauseated : in NICU Objective - Vital Signs Latest vital signs: Vital Signs Temp Pulse Resp BP BP Pulse Ox 05/04/20 08:08 98.2 F 83 18 122/71 100 05/04/20 05:55 16 05/04/20 05:25 98.4 F 91 H 20 114/51 100 05/04/20 00:30 98.3 F 88 18 109/52 100 05/03/20 20:15 98.6 F 92 H 18 117/79 97 05/03/20 17:20 18 05/03/20 16:45 97.8 F 82 18 125/74 100 05/03/20 13:12 97.6 F 76 18 112/66 100 05/03/20 12:15 73 12 112/67 100 05/03/20 12:00 78 17 100/69 100 05/03/20 11:45 90 12 123/61 100 05/03/20 11:15 78 12 114/66 100 05/03/20 11:00 77 17 115/71 100 05/03/20 10:45 81 12 115/68 100 05/03/20 10:40 86 13 114/76 100 05/03/20 10:35 87 14 114/71 100 05/03/20 10:18 98.6 F 84 21 109/65 100 Intake and Output 05/03/20 05/04/20 05/04/20 23:59 07:59 15:59 Intake Total 290 120 Output Total 700 300 Balance -410 120 -300 Intake: IV 50 ANCEF/NS 1 GM/50 ML 1 gm 50 In 50 ml @ 100 mls/hr IV Q8H [facility] Rx#:[id number] Oral 240 120 Output: Urine 700 300 Indwelling Catheter 700 Void 300 Other: Total, Intake Amount 240 120 Total, Output Amount 400 300 # Voids Indwelling Catheter 1 1 - Exam Breasts: Present: normal Cardiovascular: Present: Regular rate Lungs: Present: Clear to auscultation, Normal air movement Abdomen: Present: normal appearance, soft Vulva: both: normal Uterus: Present: normal, firm, fundal height below umbilicus Extremities: Present: normal Deep Tendon Reflex Grade: Normal +2 Incision: Present: normal, dry, intact - Labs Labs: Abnormal lab results 05/04/20 Range/Units 01:50 Hgb 8.3 L (10.1-14.3) gm/dl Hct 25.4 L (30.3-42.9) % <ELMER MUNOZ G - Last Filed: 05/04/20 10:52> Assessment and Plan Anticipate discharge tomorrow - Patient Problems (1) delivery delivered Current Visit: Yes Status: Acute Objective - Vital Signs Latest vital signs: Vital Signs Temp Pulse Resp BP BP Pulse Ox 05/04/20 08:08 98.2 F 83 18 122/71 100 05/04/20 05:55 16 05/04/20 05:25 98.4 F 91 H 20 114/51 100 05/04/20 00:30 98.3 F 88 18 109/52 100 05/03/20 20:15 98.6 F 92 H 18 117/79 97 05/03/20 17:20 18 05/03/20 16:45 97.8 F 82 18 125/74 100 05/03/20 13:12 97.6 F 76 18 112/66 100 05/03/20 12:15 73 12 112/67 100 05/03/20 12:00 78 17 100/69 100 05/03/20 11:45 90 12 123/61 100 05/03/20 11:15 78 12 114/66 100 05/03/20 11:00 77 17 115/71 100 Intake and Output 05/03/20 05/04/20 05/04/20 22:59 06:59 14:59 Intake Total 290 120 Output Total 700 300 Balance -410 120 -300 Intake: IV 50 ANCEF/NS 1 GM/50 ML 1 gm 50 In 50 ml @ 100 mls/hr IV Q8H [facility] Rx#:[id number] Oral 240 120 Output: Urine 700 300 Indwelling Catheter 700 Void 300 Other: Total, Intake Amount 240 120 Total, Output Amount 400 300 # Voids Indwelling Catheter 1 1 - Labs Labs: Abnormal lab results 05/04/20 Range/Units 01:50 Hgb 8.3 L (10.1-14.3) gm/dl Hct 25.4 L (30.3-42.9) %
[2020-05-04] MEDS ORDERED: FERROUS SULFATE 325 MG TAB PO SCH (10:00)
[2020-05-04] MEDS: FERROUS SULFATE 325 MG TAB PO SCH ×2 (10:10→22:42)
[2020-05-04] MEDS: DOCUSATE SODIUM 100 MG CAP PO SCH ×2 (10:10→22:41)
[2020-05-04] MEDS: IBUPROFEN 800 MG TAB PO PRN ×3 (10:10→22:42)
[2020-05-05] MEDS: IBUPROFEN 800 MG TAB PO PRN ×2 (05:33→17:54)
[2020-05-05] MEDS: DOCUSATE SODIUM 100 MG CAP PO SCH ×2 (10:17→22:30)
[2020-05-05] MEDS: FERROUS SULFATE 325 MG TAB PO SCH ×2 (10:17→22:30)
--- NOTE | 2020-05-05 11:08 | Progress Note ---
Assessment and Plan pt resting, after going to to NICU to visit baby. VSSAF, lochia scant, fundus firm, incision D&I - Patient Problems (1) delivery delivered Current Visit: Yes Status: Acute Plan to address problem: advance diet and activity as tolerated anticipate c/s tomorrow since baby is still in NICU (2) Anemia due to acute blood loss Current Visit: Yes Status: Acute Plan to address problem: FE BID Subjective - Subjective Date of service: 05/05/20 Principal diagnosis: postop day #2 s/p primary c/s Interval history: EDC Calculations LMP: 05/01/2020 Past History : 1 Term Births: 0 Premature Births: 0 Living Children: 0 Para: 0 Mult. Births: 0 Prev : 0 Aborta: 0 Elect. Ab: 0 Spont. Ab: 0 Ectopics: 0 Risk Factors: Smoked Tobacco Use: Never smoker Smokeless Tobacco Use: Never Passive smoke exposure: no Drug use: no HIV high-risk behavior: no Alcohol use: no Seatbelt use: preg-grief counselor % Family History Risk Factors: Family History of NC in females < 65 years old: no Dietary Counseling: pn yes Past Medical History: Reviewed history and no changes required: Negative Past Medical History Past Surgical History: Reviewed history and no changes required: negative Past Medical History Anesthesia Complications: negative Anemia: negative Autoimmune Disorder: negative Bleeding Disorder: negative Blood Transfusions: negative Breast Disease: negative Diabetes: negative Heart Disease: negative Hypertension: negative Hepatitis/Liver Disease: negative Kidney Disease/UTI: negative Neurologic/Epilepsy/Migraines: negative Phlebitis/Varicosities: negative Psychiatric: negative Pulmonary Disease/Asthma: negative Thyroid Disease: negative Hospitalizations: negative Surgery (Non-remotely operated vehicle): negative Abnormal PAP: negative ISAAC Exposure: negative Infertility: negative Uterine Anomaly: negative Uterine Surgery (not C/S): negative Other Gynecologic Problems: negative Family Hx: Mother: HTN Infection History Hx of STD: none HIV Risk Eval: no Hepatitis B Risk Eval: low risk Personal hx. of genital herpes: no Partner hx. of genital herpes: no Rash, Viral, or Febrile illness since last LMP? no Varicella/Chicken Pox Status: Unknown TB Risk: no Genetic History Congenital Heart Defect: Mom: no Dad: unknown Cody Disease: Mom: no Dad: unknown Thalassemia Mom: no Dad: unknown Neural Tube Defect Mom: no Dad: unknown Down's Syndrome Mom: no Dad: unknown Dino-Sachs Mom: no Dad: unknown Sickle Cell Disease/Trait Mom: yes Dad: unknown Comments: Does not know family members name. Hemophilia Mom: no Dad: unknown Muscular Dystrophy Mom: no Dad: unknown Cystic Fibrosis Mom: no Dad: unknown [place] Chorea Mom: no Dad: unknown Mental Retardation Mom: no Dad: unknown Fragile X Mom: no Dad: unknown Other Genetic/Chromosomal Disorder Mom: no Dad: unknown Child w/other defect Mom: no Dad: unknown Enviromental Exposures Xray Exposure: no Medication, drug, or alcohol use since LMP: no Chemical/Other Exposure: no Exposure to Cat Liter: no Hx of Parvovirus (Fifth Disease): no Occupational Exposure to Children: none Current Allergies (reviewed today): * ROBITUSSIN (Critical) Patient reports: appetite normal, voiding normally, pain well controlled, flatus, ambulating normally, no dizzy ambulation, no nauseated [place]: in NICU Objective - Vital Signs Latest vital signs: Vital Signs Temp Pulse Resp BP Pulse Ox 05/05/20 08:10 98.0 F 75 18 115/76 100 05/05/20 01:16 98.0 F 88 20 117/67 100 05/04/20 18:15 18 05/04/20 16:12 98.0 F 89 18 100/62 100 05/04/20 16:10 18 05/04/20 12:10 18 Intake and Output 05/04/20 05/05/20 05/05/20 23:59 07:59 15:59 Intake Total 960 240 240 Balance 960 240 240 Intake: Oral 720 240 240 Intake, Free Water 240 Other: Total, Intake Amount 240 240 240 # Voids Void 2 1 - Exam Breasts: Present: normal, (pumping for baby while in NICU) Cardiovascular: Present: Regular rate Lungs: Present: Clear to auscultation, Normal air movement Abdomen: Present: normal appearance, soft. Absent: distention, tenderness Vulva: both: normal Uterus: Present: normal, firm, fundal height above umbilicus Extremities: Present: normal Deep Tendon Reflex Grade: Normal +2 Incision: Present: normal, dry, intact
[2020-05-05] MEDS: HYDROcodone/ACETAMINOPHEN 5-325 MG TAB PO PRN ×2 (12:11→22:30)
[2020-05-06] MEDS: IBUPROFEN 800 MG TAB PO PRN (04:58)
--- NOTE | 2020-05-06 08:52 | Discharge Summary ---
Providers - Providers Date of Admission: 05/02/20 21:22 Date of discharge: 05/06/20 (Pt agrees to discharge home.) Attending physician: YARITZA BOGGS 05/03/20 13:46 Consult to Hotbed Transfer Operator [CONS] Routine Reason For Exam: Primary care physician: YARITZA BOGGS Hospitalization Reason for admission: active labor Delivery: Procedure: section, primary low transverse Episiotomy: none Laceration: none Incision: normal, dry, intact Other procedures: none complications: none Discharge diagnosis: IUP at term delivered [place] baby: male Pertinent studies: Pt is tearful that is not being discharged at this time. We discussed that this is day 3 post op , she is in good condition with no complications after her and there is no indication for her to remain in the hospital at this time. Discussed with the charge weigher and RN taking care of patient that she will be discharged later on in the afternoon so that she can visit the in the NICU before leaving. We also discussed that she will be able to visit the in the NICU once discharged home. She will have to discussed visitation policy with NICU staff. Pt verbalized understanding. Hospital course: S: Pt tearful because not being discharged at this time, but states that she is doing okay. Ambulating, voiding, and passing flatus okay. BC: Pills. O: VSS. Fundus firm, minimal bleeding noted. H/H 8.3/25.4, asymptomatic anemia from delivery. Adequate I&O's. A: 24 y.o. s/p primary d/t intolerance to labor, remote from delivery. Now POD #3. In stable and good condition for discharge home. P: Discharge home with instructions. Pt to schedule an incision check in the office in 1 week. Condition at discharge: Good Disposition: DC-01 TO HOME OR SELFCARE Plan - Discharge Medications Prescriptions: Lidocain2.5%/Prilocai2.5% [Emla] 5 gm TP ONCE #1 tube Ferrous Sulfate [Feosol 325 MG tab] 325 mg PO BID #60 tablet Ibuprofen [Motrin] 800 mg PO Q6H PRN #30 tablet PRN Reason: Pain, Moderate (4-6) oxyCODONE /ACETAMINOPHEN [Percocet 5/325 mg] 1 - 2 tab PO Q6HR PRN #20 tablet PRN Reason: Pain oxyCODONE /ACETAMINOPHEN [Percocet 5/325 mg] 1 - 2 tab PO Q6HR PRN #20 tablet PRN Reason: Pain - Provider Discharge Summary Activity: routine, no sex for 6 weeks, no heavy lifting 4 weeks, no strenuous exercise Diet: routine Instructions: routine Additional instructions: [] Smoking cessation referral if applicable(refer to patient education folder for contact #) [] Refer to [employer] Booklet Call your doctor immediately for: * Fever > 100.5 * Heavy vaginal bleeding ( >1 pad per hour) * Severe persistent headache * Shortness of breath * Reddened, hot, painful area to leg or breast * Drainage or odor from incision. * Keep incision clean and dry at all times and follow doctor's instructions regarding bathing/showering Congratulations on you baby boy! Please schedule his circumcision appointment one week after he is discharged. Please schedule your incision check in the office in 1 week. Take all medications as written by your provider. If you have any questions or concerns after discharge, please do not hesitate to call the office at [phone]. - Follow up plan Follow up: YARITZA BOGGS MD [Primary Care Provider] - 7 Days Forms: [facility] Discharge Summary
[2020-05-06] MEDS: DOCUSATE SODIUM 100 MG CAP PO SCH (12:34)
[2020-05-06] MEDS: FERROUS SULFATE 325 MG TAB PO SCH (12:35)
[2020-05-06 14:51] VITALS: BP 117/72
== END 2020-05-06 15:05 | disposition home or self-care (01) | DRG 765 ==
LOC: TRG 20:44 → APU 20:46 → LD 21:22 → TRG 22:24 → OB 05-03 13:12
PROVIDERS: ADMIT Obstetrics & Gynecology; ATTEND Obstetrics & Gynecology
PROC: 3E0R3BZ Introduction of Anesthetic Agent into Spinal Canal, Percutaneous Approach (ICD-10-PCS; 2020-05-02)
PROC: 00HU33Z Insertion of Infusion Device into Spinal Canal, Percutaneous Approach (ICD-10-PCS; 2020-05-02)
PROC: 10D00Z1 Extraction of Products of Conception, Low, Open Approach (ICD-10-PCS; principal; 2020-05-03)
PROC: 3E0R3BZ Introduction of Anesthetic Agent into Spinal Canal, Percutaneous Approach (ICD-10-PCS; 2020-05-03)
DX: O99.824 Streptococcus B carrier state complicating childbirth (principal); D62 Acute posthemorrhagic anemia; O48.0 Post-term pregnancy; Z3A.40 40 weeks gestation of pregnancy; Z37.0 Single live birth; O99.02 Anemia complicating childbirth; Z20.822 Contact with and (suspected) exposure to COVID-19
CPT/HCPCS: 36415; 59025; 85014; 85018; 85027; 86592; 86850; 86900; 86901; G0378; J0290; J0690; J1885; J2370; J2405; J3490; J7120; U0003